=== PATIENT | female | born 1945 ===

== ENCOUNTER 2021-01-29 08:39 | Outpatient (CLI) | payer OTHER | END 2021-01-29 08:44 | disposition home or self-care (01) | LOC: NUCLEAR 08:39 | PROVIDERS: ATTEND Family Medicine | DX: I70.213 Atherosclerosis of native arteries of extremities with intermittent claudication, bilateral legs (principal) ==

== ENCOUNTER 2021-01-30 09:59 | Outpatient (CLI) | payer OTHER | END 2021-01-30 10:02 | disposition home or self-care (01) | LOC: NUCLEAR 09:59 | PROVIDERS: ATTEND Family Medicine | DX: I87.2 Venous insufficiency (chronic) (peripheral) (principal) ==